=== PATIENT | female | born 2000 | race American Indian/Alaskan Native ===

== ENCOUNTER 2023-07-04 08:55 | Day surgery (SDC) | payer SELFPAY ==
[2023-07-04] MEDS ORDERED: Sodium Chloride 0.9% 10 ML Syringe FLUSH PRN (11:08)
[2023-07-04 11:22] LABS: BASOPHILS PERCENT AUTO 0.2 % (0.0-1.0); EOSINOPHILS PERCENT AUTO 0.3 % (0.0-6.0); HEMATOCRIT 43.2 % (37.0-47.0); HEMOGLOBIN 14.6 gm/dl (12.0-16.0); IMMATURE GRAN ABSOLUTE AUTO 0.01 K/mm3 (0.00-0.05); IMMATURE GRAN PERCENT AUTO 0.2 % (0.0-0.4); LYMPHOCYTES ABSOLUTE AUTO 1.5 K/mm3 (1.0-4.8); LYMPHOCYTES PERCENT AUTO 24.5 % (24.0-44.0); MEAN CORPUSCULAR HEMOGLOBIN 30.8 pg (28.0-32.0); MEAN CORPUSCULAR HGB CONC 33.8 g/dl (32.0-36.0); MEAN CORPUSCULAR VOLUME 91.1 fl (83.0-99.0); MEAN PLATELET VOLUME 8.7 fl (9.4-12.3); MONOCYTES ABSOLUTE AUTO 0.6 K/mm3 (0.0-0.8); MONOCYTES PERCENT AUTO 9.4 % (0.0-8.0); NEUTROPHILS ABSOLUTE AUTO 3.9 K/mm3 (1.8-7.7); NEUTROPHILS PERCENT AUTO 65.4 % (41.0-71.0); PLATELET COUNT,PLT 296 K/mm3 (150-400); RED BLOOD CELL COUNT 4.74 M/mm3 (4.10-5.30); WHITE BLOOD CELL COUNT,WBC 5.97 K/mm3 (3.9-11.3)
[2023-07-04] MEDS ORDERED: Midazolam 1 MG/ML 2 ML SDV ONE (12:34)
[2023-07-04] MEDS ORDERED: fentaNYL 100 MCG/2 ML SDV ONE (12:35)
[2023-07-04] MEDS ORDERED: ceFAZolin 2 GM Vial ONE (12:35)
[2023-07-04] MEDS ORDERED: Rocuronium 50 MG/5 ML Vial ONE (12:35)
[2023-07-04] MEDS ORDERED: Propofol 200 MG/20 ML SDV ONE (12:35)
[2023-07-04] MEDS ORDERED: Lactated Ringers 1,000 ML ONE (12:36)
[2023-07-04] MEDS ORDERED: Bupivacaine 0.5% 10 ML SDV ONE (12:54)
[2023-07-04] MEDS ORDERED: HYDROmorphone 0.5 MG/0.5 ML Syringe IVPUSH PRN (12:58)
[2023-07-04] MEDS ORDERED: Ondansetron 4 MG/2 ML SDV IVPUSH PRN (12:58)
[2023-07-04] MEDS ORDERED: Lidocaine 1% 4 ML ONE (13:23)
[2023-07-04] MEDS ORDERED: Dexamethasone 4 MG/ML 5 ML MDV ONE (14:15)
[2023-07-04] MEDS ORDERED: Ondansetron 4 MG/2 ML SDV ONE (14:15)
[2023-07-04] MEDS ORDERED: HYDROmorphone 0.5 MG/0.5 ML Syringe ONE (14:25)
[2023-07-04] MEDS ORDERED: Ketorolac 30 MG/ML SDV ONE (14:43)
[2023-07-04] MEDS ORDERED: Sugammadex Sodium 200 MG/2 ML VIAL ONE (14:43)
[2023-07-04] MEDS: fentaNYL 100 MCG/2 ML SDV IVPUSH PRN ×2 (15:07→15:48)
[2023-07-04] MEDS ORDERED: Acetaminophen/oxyCODONE 325-5 MG Tab PO SCH (16:00)
== END 2023-07-04 18:10 | disposition home or self-care (01) ==
LOC: JD.ED 08:55 → JD.SDS 13:32
PROVIDERS: ATTEND Obstetrics & Gynecology
DX: O00.101 Right tubal pregnancy without intrauterine pregnancy (principal)
CPT/HCPCS: 36415; 59151; 76817; 81025; 84702; 85025; 86900; 86901; 99285; A9270; J0665; J0690; J1100; J1170; J1885; J2250; J2405; J2704; J3010; J3490; J7120

== ENCOUNTER 2023-08-04 12:02 | Emergency (ER) | payer SELFPAY ==
[2023-08-04] MEDS ORDERED: Sodium Chloride 0.9% 10 ML Syringe FLUSH PRN (12:40)
[2023-08-04 13:29] LABS: BASOPHILS PERCENT AUTO 0.4 % (0.0-1.0); EOSINOPHILS ABSOLUTE AUTO 0.1 K/mm3 (0.0-0.4); EOSINOPHILS PERCENT AUTO 1.6 % (0.0-6.0); HEMOGLOBIN 13.7 gm/dl (12.0-16.0); IMMATURE GRAN ABSOLUTE AUTO 0.03 K/mm3 (0.00-0.05); IMMATURE GRAN PERCENT AUTO 0.4 % (0.0-0.4); LYMPHOCYTES ABSOLUTE AUTO 2.7 K/mm3 (1.0-4.8); LYMPHOCYTES PERCENT AUTO 38.6 % (24.0-44.0); MEAN CORPUSCULAR HEMOGLOBIN 30.6 pg (28.0-32.0); MEAN CORPUSCULAR HGB CONC 33.4 g/dl (32.0-36.0); MEAN CORPUSCULAR VOLUME 91.5 fl (83.0-99.0); MEAN PLATELET VOLUME 8.6 fl (9.4-12.3); MONOCYTES ABSOLUTE AUTO 0.8 K/mm3 (0.0-0.8); MONOCYTES PERCENT AUTO 11.2 % (0.0-8.0); NEUTROPHILS ABSOLUTE AUTO 3.3 K/mm3 (1.8-7.7); NEUTROPHILS PERCENT AUTO 47.8 % (41.0-71.0); PLATELET COUNT,PLT 317 K/mm3 (150-400); RED BLOOD CELL COUNT 4.48 M/mm3 (4.10-5.30); WHITE BLOOD CELL COUNT,WBC 6.99 K/mm3 (3.9-11.3)
[2023-08-04 13:32] LABS: APPEARANCE,URINE CLEAR (Clear); BILIRUBIN,URINE NEGATIVE (Negative); COLOR,URINE YELLOW (Yellow); GLUCOSE,URINE NEGATIVE (Negative); KETONES,URINE NEGATIVE (Negative); LEUKOCYTE ESTERASE,URINE NEGATIVE (Negative); NITRITE,URINE NEGATIVE (Negative); OCCULT BLOOD,URINE NEGATIVE (Negative); PROTEIN,URINE NEGATIVE (Negative); UROBILINOGEN,URINE 0.2 (0.2-1.0)
[2023-08-04 13:49] LABS: BACTERIA,URINE FEW /hpf (FEW); EPITHELIAL CELLS,URINE 0-5 /hpf (0-5); MUCUS,URINE FEW /hpf (FEW); RBC,URINE 0-5 /hpf (0-5); WBC,URINE 0-5 /hpf (0-5)
[2023-08-04 13:55] LABS: A/G RATIO 0.9 (1-2); ALBUMIN 3.6 g/dl (3.4-5.0); ANION GAP 12.1 (5-15); BILIRUBIN TOTAL 0.4 mg/dL (0.2-1.0); CALCIUM 8.9 mg/dL (8.5-10.1); CREATININE 0.8 mg/dL (0.55-1.02); EST CRCL DRUG DOSING (CG) 92.83 mL/min; MAGNESIUM 1.9 mg/dL (1.8-2.4); POTASSIUM,K 4.1 mEq/L (3.5-5.1); PROTEIN TOTAL,TP 7.5 g/dl (6.4-8.2)
[2023-08-04] MEDS ORDERED: Iopamidol 612 MG/ML 100 ML Bottle IVPUSH ONE (14:35)
== END 2023-08-04 15:35 | disposition home or self-care (01) ==
LOC: JD.ED 12:02
DX: R10.30 Lower abdominal pain, unspecified (principal)
CPT/HCPCS: 36415; 74177; 80053; 81001; 83735; 84702; 85025; 99284; Q9967; 99283

== ENCOUNTER 2024-05-27 23:39 | Inpatient (IN) | payer SELFPAY ==
[2024-05-28] MEDS ORDERED: Nalbuphine 10 MG/1 ML Vial IVPUSH PRN (00:37)
[2024-05-28] MEDS ORDERED: Acetaminophen 325 MG Tab PO PRN (00:37)
[2024-05-28] MEDS ORDERED: Calcium Carbonate 500 MG Tab.Chew PO PRN (00:37)
[2024-05-28] MEDS ORDERED: Lidocaine 1% 50 ML MDV INJECT PRN (00:37)
[2024-05-28] MEDS ORDERED: Ondansetron 4 MG/2 ML SDV IVPUSH PRN (00:37)
[2024-05-28] MEDS ORDERED: Oxytocin/0.9 % Sodium Chloride 30 UNIT/500 ML BAG IV SCH (00:45)
[2024-05-28 00:55] LABS: BASOPHILS PERCENT AUTO 0.3 % (0.0-1.0); EOSINOPHILS ABSOLUTE AUTO 0.1 K/mm3 (0.0-0.4); EOSINOPHILS PERCENT AUTO 0.5 % (0.0-6.0); HEMATOCRIT 40.7 % (37.0-47.0); HEMOGLOBIN 13.9 gm/dl (12.0-16.0); IMMATURE GRAN ABSOLUTE AUTO 0.09 K/mm3 (0.00-0.05); IMMATURE GRAN PERCENT AUTO 0.8 % (0.0-0.4); LYMPHOCYTES ABSOLUTE AUTO 2.8 K/mm3 (1.0-4.8); LYMPHOCYTES PERCENT AUTO 23.4 % (24.0-44.0); MEAN CORPUSCULAR HEMOGLOBIN 30.3 pg (28.0-32.0); MEAN CORPUSCULAR HGB CONC 34.2 g/dl (32.0-36.0); MEAN CORPUSCULAR VOLUME 88.7 fl (83.0-99.0); MEAN PLATELET VOLUME 9.3 fl (9.4-12.3); MONOCYTES ABSOLUTE AUTO 0.9 K/mm3 (0.0-0.8); MONOCYTES PERCENT AUTO 7.6 % (0.0-8.0); NEUTROPHILS PERCENT AUTO 67.4 % (41.0-71.0); PLATELET COUNT,PLT 303 K/mm3 (150-400); RED BLOOD CELL COUNT 4.59 M/mm3 (4.10-5.30); WHITE BLOOD CELL COUNT,WBC 11.91 K/mm3 (3.9-11.3)
[2024-05-28] MEDS: Lactated Ringers 1,000 ML IV SCH (01:16)
[2024-05-28] MEDS: Oxytocin/0.9 % Sodium Chloride 30 UNIT/500 ML BAG IV SCH (03:36)
[2024-05-28] MEDS ORDERED: Witch Hazel Medicated Pads 40/Jar TOP PRN (08:22)
[2024-05-28] MEDS ORDERED: Benzocaine/Menthol 20%-0.5% Spray 78 GM Cannister TOP PRN (08:22)
[2024-05-28] MEDS ORDERED: Docusate Sodium 100 MG Cap PO PRN (09:00)
[2024-05-28] MEDS: Ibuprofen 800 MG Tab PO SCH (09:36)
[2024-05-28] MEDS: Acetaminophen 325 MG Tab PO PRN (22:32)
== END 2024-05-29 12:55 | disposition home or self-care (01) | DRG 807 ==
LOC: JD.OBCHECK 23:39 → JD.OB 23:42 → JD.OBCHECK 05-28 00:36 → JD.OB 05-28 00:37 → OBSVTOIN 05-28 08:01 → JD.OB 05-28 08:02
PROVIDERS: ADMIT Obstetrics & Gynecology; ATTEND Obstetrics & Gynecology
PROC: 10E0XZZ Delivery of Products of Conception, External Approach (ICD-10-PCS; principal; 2024-05-28)
DX: O42.02 Full-term premature rupture of membranes, onset of labor within 24 hours of rupture (principal); Z37.0 Single live birth; Z3A.37 37 weeks gestation of pregnancy
CPT/HCPCS: 36415; 59025; 59409; 85025; 86592; 86850; 86900; 86901; A9270-GY; J7120; J7999